=== PATIENT | female | born 1950 | race Caucasian/White ===

== ENCOUNTER 2017-04-22 07:51 | Day surgery (SDC) | payer BC, MEDICARE ==
[~2017-04-22 07:51] MED LIST: RINGER'S SOLUTION,LACTATED 1,000 ML IV PRN
--- NOTE | 2017-04-22 09:08 | OR ---
Operative Report - Dictated Report Narrative: Date: 04/22/2017 Preop dx: screening colonoscopy\ Postop dx: Diverticulosis of sigmoid colon, moderate Procedure: Total colonoscopy Staff surgeon: Josesito Calle MD Anesthesia: MAC per [employer]LE[employer] MANAGER EBL: none Specimens: none Comps: none apparent Description: After informed consent and appropriate sedation the patient was placed in the left lateral decubitus position. A flexible fiberoptic video colonoscopy was introduced and advanced under direct vision without difficulty to the cecum. The usual landmarks were identified. preparation was excellent and excellent views were obtained. The findings were of a normal cecum, ascending colon, hepatic flexure, transverse colon, splenic flexure, descending colon, sigmoid colon except for about 6 diverticuli, and rectum. Retroflex of the rectum was normal. Lichen sclerosis was noted on the perianal skin. The mucosal color, vasculature, and texture were normal throughout. No suspicious masses were seen. The patient tolerated the procedure well without apparent complications and was discharged from the endoscopy suite in stable condition.
[2017-04-22 10:39] VITALS: BP 130/70
== END 2017-04-22 07:52 | disposition home or self-care (01) ==
LOC: AMB 07:51
PROVIDERS: ATTEND Specialist
PROC: 0DJD8ZZ Inspection of Lower Intestinal Tract, Via Natural or Artificial Opening Endoscopic (ICD-10-PCS; principal; 2017-04-22 08:55)
DX: Z12.11 Encounter for screening for malignant neoplasm of colon (principal); K57.30 Diverticulosis of large intestine without perforation or abscess without bleeding; I10 Essential (primary) hypertension; Z87.891 Personal history of nicotine dependence

== ENCOUNTER 2017-05-19 19:26 | Observation (INO) | payer BC, MEDICARE ==
[2017-05-19] MEDS ORDERED: DILTIAZEM HCL 5 MG/ML VIAL IV ONE ×2 (19:40→20:09)
--- NOTE | 2017-05-19 19:56 | ERNOTE ---
Chest Pain/Cardiac HPI Date of Service: 05/19/17 Chief Complaint: Palpitations Time Seen by Provider: 05/19/17 19:46 Source: patient Exam Limitations: no limitations Immunizations: IMMUNIZATION HX Immunizations Up to Date Yes History of Influenza Vaccine Yes Hx Pneumococcal Vaccination No Allergies/Adverse Reactions: Allergies Sulfa (Sulfonamide Antibiotics) Allergy (Severe, Verified 04/22/17 08:14) Anaphylaxis Home Medications: HOME MEDICATIONS Acetaminophen [Tylenol] 1,000 mg PO Q6H PRN 09/18/15 [Last Taken Unknown] Clobetasol Propionate [Temovate 0.05% Ointment] 1 applic TP 3XW 09/18/15 [Last Taken Unknown] Cyanocobalamin (Vitamin B-12) [Vitamin B-12] 2,000 mcg PO DAILY 09/18/15 [Last Taken Unknown] Calcium Carbonate/Vitamin D3 [Caltrate 600 + D Soft Chew Tab] 1 each PO DAILY [Last Taken Unknown] Turmeric/Turmeric Root Extract [Turmeric] 500 mg PO DAILY 04/15/17 [Last Taken Unknown] Narrative: Pt. comes in with c/o palpitations that started at 1730 this evening accompanied by mild SOB. Pt. denies any dizziness, NVD, history of heart disease, fever, recent illness, or injury. Pt. denies any alleviating or aggravating factors. Pt. denies any prehospital treatment. Pt. does state that she has had palpitations in the past without it lasting more than 1-2 minutes. Review of Systems - Review of Systems Constitutional: Present: no symptoms reported. Absent: recent illness, fever, chills, weakness, fatigue, malaise, weight loss EYE: Present: no symptoms reported ENT: Present: no symptoms reported Respiratory: Present: shortness of breath. Absent: cough, wheezing Cardiology: Present: palpitations. Absent: chest pain, syncope, edema, claudication Gastrointestinal/Abdominal: Present: no symptoms reported. Absent: nausea, vomiting, diarrhea Genitourinary: Present: no symptoms reported Musculoskeletal: Present: no symptoms reported. Absent: back pain, joint pain Skin: Present: no symptoms reported Neurological: Present: no symptoms reported. Absent: headache, dizziness/light- headedness, numbness, tingling All Other Systems: All systems neg except as marked - Patient's Past Medical History Patient History - Medical: Arthritis, Other - thyroid nodule Patient History - Cardiac/Respiratory: No pertinent hx Patient History - Cancer: No Hx of Cancer Patient History - Surgical Procedures: Appendectomy, Other Patient History - Other: None - Family History Mother Family History - Medical: , Other Family History - Cardiac/Respiratory: Atrial Fibrillation, Coronary Heart Disease, Hypertension Family History - Cancer: No pertinent family hx Father Family History - Medical: History Unknown Family History - Cardiac/Respiratory: History Unknown Family History - Cancer: History Unknown - Social History Living Situations: home Abuse History: No History of abuse Psych History: No pertinent hx Smoking Status: Former smoker Have you smoked in the past 12 months: No Do you dip or chew tobacco: No Alcohol Use: none Drug Use: none - Immunizations Immunizations Up to Date: Yes Hx Pneumococcal Vaccination: No History of Influenza Vaccine: Yes Physical Exam - Physical Exam General Appearance: Present: wd/wn, alert, no apparent distress Head Exam: Present: normal inspection, no evidence of injury Eye Exam: Normal inspection: bilateral Neck: Present: normal inspection, nontender. Absent: lymphadenopathy (R), lymphadenopathy (L), thyromegaly Respiratory: Present: no respiratory distress, normal breath sounds, no accessory muscle use, chest nontender, lungs clear Cardiovascular/Chest: Present: regular rate, rhythm, no murmur, normal peripheral pulses Gastrointestinal/Abdominal: Present: normal bowel sounds, nontender, nondistended, soft, no organomegaly Back Exam: Present: normal inspection Extremity Exam: Present: normal inspection Neurological Exam: Present: alert, oriented, normal mood/affect, no motor/ sensory deficits Skin Exam: Present: normal color, warm/dry. Absent: pallor, skin rash ED Progress - Date and Time Seen: Date and Time: 05/19/1719[address] Stoll and he recommends admitting pt if rate becomes controlled as pt. likely needs echo before discharge home and valvular evaluation before choosing anticoagulation. 05/19/17 20:59 Discussed with Patricia and we will admit pt to her for observation for new onset A -fib. - Results and Orders Patient's Lab Results:: I have reviewed the patient's lab results. - Vital Signs Patient's Vital Signs:: I have reviewed the patient's vital signs. Vital Signs: Vital Signs 09/11/17 09/11/17 19:30 19:41 Temperature 36.7 C Pulse Rate 132 H 132 H Respiratory 16 Rate Blood Pressure 151/100 O2 Sat by Pulse 97 Oximetry - EKG EKG: atrial fibrillation, other - RVR EKG read: Reviewed by me EKG Comments: interp by Dr Stoll Repeat EKG NSR at 2044 - X-Ray X-Ray #1 X-Ray: chest Interpretation: Interp. by me X-ray Comments: no consolidation, no infiltrate, no cardiomegaly - Progress/Reassessment Chief Complaint: Palpitations Progress:: Improved Departure - Departure Clinical Impression: A-fib Qualifiers: Atrial fibrillation type: paroxysmal Qualified Code(s): I48.0 - Paroxysmal atrial fibrillation Disposition: [facility] Condition: Fair
[2017-05-19 20:05] LABS: Hematocrit 42.3 % (37.0-47.0); Hemoglobin 13.8 gm/dL (12.5-16.0); Mean Cell Volume 92.8 fl (78-100); Mean Corpuscular Hemoglobin 30.3 pg (27-31); Mean Corpuscular Hgb Conc 32.6 g/dl (32-36); Mean Platelet Volume 9.4 fl (6.0-9.5); Neutrophil # 4.1 K/mm3 (1.3-6.0); Neutrophil % 60.5 % (42-75.0); Platelet Count 241 K/mm3 (150-450); Red Blood Count 4.56 M/mm3 (4.2-5.4); Red Cell Distribution Width 12.9 % (11.5-14.0); White Blood Count 6.8 K/mm3 (4.0-10.5)
[2017-05-19 20:20] LABS: Urine Appearance Clear; Urine Bacteria TRACE; Urine Bilirubin Negative (NEGATIVE); Urine Blood 5 /ul (NEGATIVE); Urine Ketone Negative (NEGATIVE); Urine Nitrite Negative (NEGATIVE); Urine Protein Negative (NEGATIVE); Urine RBC None Seen /hpf (0-5); Urine Specific Gravity <=1.005 SP.GR. (1.005-1.010); Urine Urobilinogen Normal (NORMAL); Urine WBC None Seen /hpf (0-5)
[2017-05-19 20:21] LABS: Urine Color Pale Yellow
[2017-05-19 20:29] LABS: Albumin * 4.3 gm/dl (3.4-5.0); Anion Gap 17.7 mmol/L (6.8-13.8); Bilirubin, Total 0.3 mg/dL (0.0-1.1); Ca. Corrected For Albumin 8.8 mg/dL (8.4-10.2); Calcium * 9.4 mg/dL (7.9-10.9); Carbon Dioxide 24.8 mmol/L (24-32.6); Magnesium 2.1 mg/dL (1.2-2.8); Phosphorus 3.9 mg/dL (2.2-4.2); Potassium 3.5 mmol/L (3.4-4.6); T4 Free * 0.93 ng/dL (0.76-1.46); TSH * 0.914 uIU/mL (0.358-3.74); Total Protein 7.9 gm/dL (6.2-8.2)
[2017-05-19 21:03] LABS: Troponin I Less than 0.017 ng/ml (0.00-0.10)
[2017-05-19 21:07] LABS: BNP * 287 pg/mL (5-325)
--- NOTE | 2017-05-19 21:44 | HP ---
Chief Complaint - Chief Complaint Date of Service: 05/19/17 - n Time of Service: 21:32 Chief Complaint: "Palpitations". Source of HPI- Pt; reliable, ERP report. History of Present Illness: Mrs. Barrow is a 67-yr-old [place] pt of Dr. Billy Bejarano with a PMH of: HTN, Osteopenia & Spinal Stenosis. Pt reports that she has been feeling very tired lately. Today, she decided to mow her yard, but she had to take several breaks due to fatigue. She went to [employer] with her friend around 4.30 pm. When she got back home, she decided to finish mowing and while doing so, she begun having a " strange feeling in her heart." She checked her pulse and it felt very irregular. She denies the associated symptoms of n/v, diaphoresis & lightheadedness & chest pain, but she had admits SOB. At the ED, the EKG showed A-fib with RVR in 130S. She was given IVP diltiazem which controlled HR to < 100. She will need to be admitted under observation status for telemetry monitoring /treatment of life threatening arrhythmias that can likely occur. - Patient's Past Medical History Patient History - Medical: Arthritis, Other - thyroid nodule, Osteopenia, Spinal Stenosis. Patient History - Cardiac/Respiratory: Hypertension Patient History - Cancer: No Hx of Cancer Patient History - Surgical Procedures: Appendectomy, Other Patient History - Other: None - Family History Mother Family History - Medical: , Other Family History - Cardiac/Respiratory: Atrial Fibrillation, Coronary Heart Disease, Hypertension Family History - Cancer: No pertinent family hx Father Family History - Medical: History Unknown Family History - Cardiac/Respiratory: History Unknown Family History - Cancer: History Unknown - Social History Living Situations: home Abuse History: No History of abuse Psych History: No pertinent hx Smoking Status: Former smoker Have you smoked in the past 12 months: No Do you dip or chew tobacco: No Alcohol Use: none Drug Use: none - Immunizations Immunizations Up to Date: Yes Hx Pneumococcal Vaccination: No History of Influenza Vaccine: Yes Review Of Systems (GEN) - Review of Systems Generalized/Overall Review: Present: Weakness. Absent: Chills, Fever EENTM: Absent: Eye Pain, Blurred Vision, Nose Congestion Respiratory: Absent: Cough, Shortness of Breath, Orthopnea Cardiac: Present: Palpitations. Absent: Chest Pain, Edema, Syncope Abdominal: Absent: Nausea, Vomiting, Hematemesis, Abdominal Pain, Constipation, Diarrhea Genitourinary: Absent: Burning, Itching, Urgency Musculoskeletal: Absent: Joint Pain, Back Pain, Joint Swelling Neurological: Absent: Headache, Anxiety, Depressed, Emotional Problems, Numbness , Seizure Skin: Absent: Dryness, Lesions Endocrine: Present: Flushing. Absent: Increased Hunger, Increased Thirst Misc: All systems neg except as marked Allergies/Adverse Reactions: Allergies Allergy/AdvReac Type Severity Reaction Status Date / Time Sulfa (Sulfonamide Allergy Severe Anaphylaxis Verified 04/22/17 08:14 Antibiotics) Home Medications: HOME MEDICATIONS Acetaminophen [Tylenol] 1,000 mg PO Q6H PRN 09/18/15 [Last Taken Unknown] Clobetasol Propionate [Temovate 0.05% Ointment] 1 applic TP 3XW 09/18/15 [Last Taken Unknown] Cyanocobalamin (Vitamin B-12) [Vitamin B-12] 2,000 mcg PO DAILY 09/18/15 [Last Taken Unknown] Calcium Carbonate/Vitamin D3 [Caltrate 600 + D Soft Chew Tab] 1 each PO DAILY [Last Taken Unknown] Exam - Exam Vital Signs: Vital Signs - Last Taken Temp 36.7 C 05/19/17 19:30 Pulse 85 05/19/17 21:25 Resp 16 05/19/17 21:25 BP 161/78 05/19/17 21:25 Pulse Ox 95 05/19/17 21:25 Constitutional: Present: Alert, Oriented x3, Cooperative, No distress ENT Exam: Present: normal ENT inspection, hearing grossly normal Eye Exam: bilateral eye: normal inspection, PERRL Neck: Present: non-tender, full range of motion, supple Back Exam: Present: normal inspection, no CVA tenderness Breasts: Present: Exam deferred Respiratory: Present: normal breath sounds, No rales, No wheezing Cardiovascular/Chest: Present: no chest tenderness, no edema, no murmur, irregularly irregular Abdomen: Present: Normal bowel sounds, soft, nontender /Rectal: Present: Exam deferred Extremity: Present: normal range of motion, non-tender, normal inspection, no pedal edema Skin Exam: Present: warm/dry, no cyanosis Lymphatic: Present: no adenopathy Neurologic: Present: no motor/sensory deficits, alert, normal mood/affect, oriented x 3. Absent: dizzy/light-headedness Appearance: Present: appropriate appearance, appropriate insight Eye contact: Present: cooperative, good eye contact, normal speech Thoughts: Present: normal thought pattern, no apparent hallucination Diagnostic Studies: Laboratory Results WBC 6.8 K/mm3 (4.0-10.5) 05/19/17 19:55 RBC 4.56 M/mm3 (4.2-5.4) 05/19/17 19:55 Hgb 13.8 gm/dL (12.5-16.0) 05/19/17 19:55 Hct 42.3 % (37.0-47.0) 05/19/17 19:55 MCV 92.8 fl (78-100) 05/19/17 19:55 MCH 30.3 pg (27-31) 05/19/17 19:55 MCHC 32.6 g/dl (32-36) 05/19/17 19:55 RDW 12.9 % (11.5-14.0) 05/19/17 19:55 Plt Count 241 K/mm3 (150-450) 05/19/17 19:55 MPV 9.4 fl (6.0-9.5) 05/19/17 19:55 Immature Gran % (Auto) 0.30 % (0.001-0.429) 05/19/17 19:55 Immature Gran # (Auto) 0.02 K/mm3 (0.000-0.0310) 05/19/17 19:55 Neutrophils % 60.5 % (42-75.0) 05/19/17 19:55 Lymphocytes % 28.0 % (20-51) 05/19/17 19:55 Monocytes % 8.2 % (0.0-9) 05/19/17 19:55 Eosinophils % 2.3 % (0.0-3.0) 05/19/17 19:55 Basophils % 0.7 % (0.0-1.0) 05/19/17 19:55 Nucleated RBC % 0.0 k/mm3 (0-1) 05/19/17 19:55 Neutrophils # 4.1 K/mm3 (1.3-6.0) 05/19/17 19:55 Lymphocytes # 1.9 k/mm3 (1.5-3.5) 05/19/17 19:55 Monocytes # 0.6 k/mm3 (0.0-1.0) 05/19/17 19:55 Eosinophils # 0.2 k/mm3 (0.0-0.7) 05/19/17 19:55 Absolute Basophils 0.1 k/mm3 (0.0-0.1) 05/19/17 19:55 Sodium 145 mmol/L (132-142) H 05/19/17 19:55 Plasma Sodium 145 mmol/L (130-142) H 05/19/17 19:55 Potassium 3.5 mmol/L (3.4-4.6) 05/19/17 19:55 Chloride 106 mmol/L (97-106) 05/19/17 19:55 Carbon Dioxide 24.8 mmol/L (24-32.6) 05/19/17 19:55 Anion Gap 17.7 mmol/L (6.8-13.8) H 05/19/17 19:55 BUN 18 mg/dL (3-23) 05/19/17 19:55 Creatinine 1.00 mg/dL (0.4-1.4) 05/19/17 19:55 Est GFR (Non-Af Amer) 58 mL/min (60-130) L D 05/19/17 19:55 BUN/Creatinine Ratio 18.0 (9.0-21.6) 05/19/17 19:55 Random Glucose 89 mg/dL (70-110) 05/19/17 19:55 Calcium 9.4 mg/dL (7.9-10.9) 05/19/17 19:55 Calcium Adj for Albumin 8.8 mg/dL (8.4-10.2) 05/19/17 19:55 Phosphorus 3.9 mg/dL (2.2-4.2) 05/19/17 19:55 Magnesium 2.1 mg/dL (1.2-2.8) 05/19/17 19:55 Total Bilirubin 0.3 mg/dL (0.0-1.1) 05/19/17 19:55 AST 16 U/L (0-48) 05/19/17 19:55 ALT 24 U/L (19-67) 05/19/17 19:55 Alkaline Phosphatase 105 U/L (50-170) 05/19/17 19:55 Troponin I Less than 0.017 ng/ml (0.00-0.10) 05/19/17 19: B-Natriuretic Peptide 287 pg/mL (5-325) 05/19/17 19:55 Total Protein 7.9 gm/dL (6.2-8.2) 05/19/17 19: Albumin 4.3 gm/dl (3.4-5.0) 05/19/17 19: TSH 0.914 uIU/mL (0.358-3.74) 05/19/17 19: Free T4 0.93 ng/dL (0.76-1.46) 05/19/17 19: Urine Color Pale yellow 05/19/17 20:00 Urine Appearance Clear 05/19/17 20:00 Urine pH 6.0 pH (5.0-7.0) 05/19/17 20:00 Ur Specific [place] <=1.005 SP.GR. (1.005-1.010) 05/19/17 20:00 Urine Protein Negative mg/dL (NEGATIVE) 05/19/17 20:00 Urine Glucose (UA) Negative mg/dL (NEGATIVE) 05/19/17 20:00 Urine Ketones Negative mg/dL (NEGATIVE) 05/19/17 20:00 Urine Blood 5 /ul (NEGATIVE) H 05/19/17 20:00 Urine Nitrate Negative (NEGATIVE) 05/19/17 20:00 Urine Bilirubin Negative mg/dl (NEGATIVE) 05/19/17 20:00 Urine Urobilinogen Normal EU/dl (NORMAL) 05/19/17 20:00 Ur Leukocyte Esterase Negative /ul (NEGATIVE) 05/19/17 20:00 Urine RBC None seen /hpf (0-5) 05/19/17 20:00 Urine WBC None seen /hpf (0-5) 05/19/17 20:00 Ur Epithelial Cells None seen /hpf (0-5) 05/19/17 20:00 Urine Bacteria Trace (NONE) 05/19/17 20:00 Urine Culture Comments No culture indicated 05/19/17 20:00 Assessment/Plan - Assessment/Plan (1) New onset a-fib Assessment: Pt is a 67 yr -old who was determined to have a-fib with RVR in 130s on presentation to the ED. This is determined to be a new onset and she reported the typical symptoms involving chest discomfort, dyspnea, reduced exercise/ physical activity intolerance. Physical exam finding include irregular Heart rate, but no s/s of heart failure: orthopnea or peripheral edema, rales on LS. She denies history of loud snoring during sleep and apneic events. The CXR showed normal cardiac size. She will be admitted and placed on cardiac telemetry monitoring and utilize IV BB or CCB for A-fib with RVR. She may need stress test to check for exercise induced A-fib. TTE is recommended to check for any valvular heart disease or thrombus formation in the left atrium and both test can be done outpatient and if no acute events overnight. She may need anticoagulation. According to CHADS2 score, she has an intermediate risk of thromboembolic event of 2.8% if no Coumadin/ anticoagulation. Problem: Acute (2) Atrial fibrillation with RVR Assessment: Plan as above. Problem: Acute
[2017-05-19] MEDS ORDERED: ACETAMINOPHEN 500 MG TABLET PO PRN (23:05)
[2017-05-19] MEDS ORDERED: CLOBETASOL PROPIONATE 15 APPL TUBE TP SCH (23:15)
[2017-05-20] MEDS ORDERED: CALCIUM CARBONATE/VITAMIN D3 1 TAB TABLET PO SCH (09:00)
[2017-05-20] MEDS ORDERED: CYANOCOBALAMIN 1,000 MCG TABLET PO SCH (09:00)
[2017-05-20 11:35] VITALS: BP 136/82
--- NOTE | 2017-05-20 12:56 | DS ---
(1) Atrial fibrillation with RVR Problem: Acute (2) New onset a-fib Problem: Acute Description of Stay: Yari is a 67 yo female with new onset atrial fibrillation with rapid ventricular response. She presented to the [facility] ER and was given IV diltiazem and converted to normal sinus rhythm. She was admitted to observation for monitoring on telemetry and work up for new onset atrial fibrillation. She had an echocardiogram that is pending at this time, normal chest xray, and normal thyroid studies. During hospital course she had no further episodes of atrial fibrillation and was asymptomatic. She clinically felt her normal and was discharged to home. Will set up an outpatient holter to look for paroxysmal atrial fibrillation. She will take a daily baby aspirin for anticoagulation as she is in normal sinus rhythm and she is at low risk for stroke even with atrial fibrillation as she does not have significant risk factors. Procedures Performed: none Discharge Disposition: Home self care Disposition: Home self-care Condition: Good Discharge Activity: Activity as tolerated Discharge Diet: General/regular food Referrals: Billy Bejarano DO [Primary Care Provider] - One Week Problem Oriented Discharge Instructions to Patient/Family: Atrial Fibrillation , [id number] Additional Patient Instructions (free text): TCM at discharge , if applicable, please. Thank you. Yuli at [phone]. Holter Monitor on next Friday05/28/17 at 10:00am at Registration desk. Follow up with Dr. Bejarano 05/28 at 2:00. Prescriptions (Any new or edited meds): Aspirin [Aspirin EC] 81 mg PO DAILY #30 tablet. Complete Home Medications List: Complete Home Medication List: Acetaminophen [Tylenol] 1,000 mg PO Q6H PRN 09/18/15 Clobetasol Propionate [Temovate 0.05% Ointment] 1 applic TP 3XW 09/18/15 Cyanocobalamin (Vitamin B-12) [Vitamin B-12] 2,000 mcg PO DAILY 09/18/15 Calcium Carbonate/Vitamin D3 [Caltrate 600 + D Soft Chew Tab] 1 each PO DAILY Aspirin [Aspirin EC] 81 mg PO DAILY #30 tablet. 05/20/17 Amb Orders for Discharge: Holter Monitor Time Frame: 05/28/17, Facility: [facility], Location: Radiology
--- NOTE | 2017-05-23 08:56 | ECHO ---
This report is available in the EMR
== END 2017-05-20 13:50 | disposition home or self-care (01) ==
LOC: ER 19:26 → MS 21:18
PROVIDERS: ADMIT Nurse Practitioner; ATTEND Family Medicine
DX: I48.0 Paroxysmal atrial fibrillation (principal); I10 Essential (primary) hypertension; M85.80 Other specified disorders of bone density and structure, unspecified site; M48.00 Spinal stenosis, site unspecified; Z87.891 Personal history of nicotine dependence
CPT/HCPCS: 36415; 71020; 80053; 81001; 83735; 83880; 84100; 84439; 84443; 84484; 85025; 93005; 93306; 96374; 99285; G0378

== ENCOUNTER 2018-06-24 21:14 | Observation (INO) | payer BC, MEDICARE ==
[2018-06-24] MEDS ORDERED: ASPIRIN 81 MG TAB.CHEW PO ONE (21:46)
[2018-06-24] MEDS ORDERED: DILTIAZEM HCL 5 MG/ML VIAL IV ONE ×2 (21:50→21:51)
[2018-06-24] MEDS ORDERED: DILTIAZEM HCL 125 MG in DEXTROSE 5 % IN WATER 100 ML IV PRN ×2 (21:51)
[2018-06-24] MEDS ORDERED: ASPIRIN 81 MG TAB.CHEW ONE (21:53)
--- NOTE | 2018-06-24 21:53 | ERNOTE ---
Chest Pain/Cardiac HPI Chief Complaint: Tachycardia Time Seen by Provider: 06/24/18 21:45 Source: patient Exam Limitations: no limitations Immunizations: IMMUNIZATION HX Immunizations Up to Date Yes History of Influenza Vaccine No Hx Pneumococcal Vaccination No Allergies/Adverse Reactions: Allergies Sulfa (Sulfonamide Antibiotics) Allergy (Severe, Verified 06/24/18 21:25) Anaphylaxis Home Medications: HOME MEDICATIONS Acetaminophen [Tylenol] 1,000 mg PO Q6H PRN 09/18/15 [Last Taken Unknown] Cyanocobalamin (Vitamin B-12) [Vitamin B-12] 2,000 mcg PO DAILY 09/18/15 [Last Taken Unknown] Calcium Carbonate/Vitamin D3 [Caltrate 600 + D Soft Chew Tab] 1 ea PO DAILY 04/15/17 [Last Taken Unknown] Aspirin [Aspirin EC] 81 mg PO DAILY #30 tablet. 05/20/17 [Last Taken Unknown] multivitamin tablet 1 tab PO DAILY 03/12/18 [Last Taken Unknown] clobetasol 0.05 % topical ointment 1 applic TP 3XW #45 g NS 03/18/18 [Last Taken Unknown] Narrative: Pt had palpitations since around 19:00. She took 2 81 mg ASA and tried to relax without any improvement. Timing: constant Severity/Quality: moderate Location: left chest Chest Pain Radiation: no radiation Activities at Onset: none Modifying Factors - Worsens: Present: nothing Aspirin Treatment Today: 81 mg x 2 Associated Symptoms: Absent: headache, dizziness, syncope, diaphoresis Prior Chest Pain/Cardiac Workup: Reports: echocardiogram - and holter monitor with previous episode. Review of Systems - Review of Systems Constitutional: Present: recent illness ENT: Present: nose congestion - and took sudafed today. Respiratory: Present: cough. Absent: shortness of breath Cardiology: Present: See HPI, palpitations. Absent: chest pain Gastrointestinal/Abdominal: Absent: nausea, vomiting Musculoskeletal: Absent: back pain, muscle pain Skin: Absent: rash Endocrine: Absent: excessive sweating Medical History (Last Reviewed 06/24/18 @ 23:04 by Prakash Spears DO) Spinal stenosis (Chronic) Onset Date: Unknown Osteopenia (Chronic) Onset Date: 01/04/14 Hypertension (Chronic) Onset Date: ~2008 Bulging lumbar disc (Chronic) Onset Date: Unknown Atrial fibrillation Onset Date: ~05/2017 Lichen sclerosus Onset Date: 06/23/12 Goiter Onset Date: Unknown Surgical History: Surgical History (Last Reviewed 06/24/18 @ 23:04 by Prakash Spears DO) H/O colonoscopy Onset Date: 04/22/17 H/O excision of ganglion cyst Onset Date: ~1973 H/O ovarian cystectomy Onset Date: Unknown History of appendectomy Onset Date: Unknown Hx of hernia repair Onset Date: Unknown Hx of toe surgery Onset Date: 09/21/15 Family History: Family History (Last Reviewed 06/24/18 @ 23:04 by Prakash Spears DO) Brother Heart disease A-fib Father Myocardial infarction Aneurysm Sister Hypertension Parkinsons disease Mother Heart disease A-fib Hypertension Liver cancer Bone cancer Arthritis Social History: Preferred Language Yi Smoking Status Never smoker Have you smoked in the past 12 No months Do you dip or chew tobacco No Abuse History No History of abuse Psych History No pertinent hx Alcohol Use none Drug Use none Physical Exam - Physical Exam General Appearance: Present: wd/wn, alert, no apparent distress Head Exam: Present: normal inspection, no evidence of injury Neck: Present: normal inspection, nontender, supple, full range of motion Respiratory: Present: no respiratory distress, normal breath sounds, lungs clear Cardiovascular/Chest: Present: tachycardia, irregularly irregular Gastrointestinal/Abdominal: Present: normal bowel sounds, nontender, nondistended, soft Back Exam: Present: normal inspection, normal range of motion Extremity Exam: Present: normal inspection, normal range of motion, no edema Neurological Exam: Present: alert, oriented, normal mood/affect, no motor/sensory deficits, 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 Results and Orders: Laboratory Tests 06/24/18 06/24/18 06/24/18 21:55 21:55 21:55 WBC 5.5 Hgb 13.8 Hct 42.6 Plt Count 256 PT 10.0 INR (Anticoag Therapy) 1.00 PTT (Sarahy) 26.4 Sodium 140 Potassium 3.5 Chloride 103 BUN 14 Creatinine 0.82 Random Glucose 86 Calcium 9.6 Total Bilirubin 0.5 AST 26 ALT 29 Alkaline Phosphatase 109 Troponin I 0.019 Total Protein 7.9 Albumin 4.3 - Vital Signs Patient's Vital Signs:: I have reviewed the patient's vital signs. Vital Signs: Vital Signs 06/24/18 21:20 Pulse Rate 108 H Respiratory Rate 16 Blood Pressure 152/111 H O2 Sat by Pulse Oximetry 100 - EKG EKG: atrial fibrillation - with RVR , nonspecific ST T wave changes EKG read: Interp. by me - X-Ray X-Ray #1 X-Ray: chest Interpretation: Interp. by me X-ray Comments: no infiltrate or effusion. Cardiac size normal. - Progress/Reassessment Chief Complaint: Tachycardia Progress:: Improved Progress Note-Subjective: 06/24/18 22:[address] Marcos and she agrees with admission to [facility]. Departure Clinical Impression: Atrial fibrillation with RVR, New onset a-fib - Departure Disposition: Still a patient Condition: Good
[2018-06-24 22:02] LABS: Hematocrit 42.6 % (37.0-47.0); Hemoglobin 13.8 gm/dL (12.5-16.0); Mean Corpuscular Hemoglobin 30.5 pg (27-31); Mean Corpuscular Hgb Conc 32.4 g/dl (32-36); Neutrophil % 54.1 % (42-75.0); Platelet Count 256 K/mm3 (150-450); Red Blood Count 4.53 M/mm3 (4.2-5.4); Red Cell Distribution Width 12.9 % (11.5-14.0); White Blood Count 5.5 K/mm3 (4.0-10.5)
[2018-06-24 22:20] LABS: Albumin * 4.3 gm/dl (3.4-5.0); Anion Gap 10.3 mmol/L (6.8-13.8); BUN/Creatinine Ratio 17.1 (9.0-21.6); Bilirubin, Total 0.5 mg/dL (0.0-1.1); Calcium * 9.6 mg/dL (7.9-10.9); Carbon Dioxide 30.2 mmol/L (24-32.6); Partial Thrombolplastin Time 26.4 Seconds (24-32); Potassium 3.5 mmol/L (3.4-4.6); Total Protein 7.9 gm/dL (6.2-8.2); Troponin I 0.019 ng/mL (0.00-0.10)
[2018-06-25] MEDS: DILTIAZEM HCL 30 MG TABLET PO SCH ×3 (00:48→13:20)
--- NOTE | 2018-06-25 13:36 | HP ---
Chief Complaint - Chief Complaint Date of Service: 06/25/18 Time of Service: 08:00 Chief Complaint: Palpitations, shortness of breath History of Present Illness: Yari is a 68 yo female who presented to the [facility] ER early this morning with shortness of breath and palpations. She has had one prior episode last year of atrial fibrillation with rapid ventricular response that resolved with medication therapy and to our knowledge has not returned since. Yesterday she reports working outside more than usual, but had otherwise a routine day. In the ER she was found to be in atrial fibrillation with rapid ventricular response. She was given diltiazem in the ER and rate improved. She currently feels better and denies shortness of breath or palpitations at this time. She reports ever since given medication and coming over to the floor she has felt better. Medical History (Last Reviewed 06/25/18 @ 00:29 by Lily Nuñez RN) Spinal stenosis (Chronic) Onset Date: Unknown Osteopenia (Chronic) Onset Date: 01/04/14 Hypertension (Chronic) Onset Date: ~2008 Bulging lumbar disc (Chronic) Onset Date: Unknown Atrial fibrillation Onset Date: ~05/2017 Lichen sclerosus Onset Date: 06/23/12 Goiter Onset Date: Unknown Surgical History: Surgical History (Last Reviewed 06/25/18 @ 00:29 by Lily Nuñez RN) H/O colonoscopy Onset Date: 04/22/17 [place] - sigmoid diverticulosis - recheck 10 years H/O excision of ganglion cyst Onset Date: ~1973 left wrist H/O ovarian cystectomy Onset Date: Unknown right History of appendectomy Onset Date: Unknown Hx of hernia repair Onset Date: Unknown left inguinal Hx of toe surgery Onset Date: 09/21/15 Family History: Family History (Last Reviewed 06/25/18 @ 00:29 by Lily Nuñez RN) Brother Heart disease 3 brothers, 1 with atrial fibrillation and heart disease A-fib Father Myocardial infarction Aneurysm Sister Hypertension Parkinsons disease Mother Heart disease A-fib Hypertension Liver cancer Bone cancer Arthritis Social History: Patient Lives/Resources Home Utilized 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 Smoking Status Former smoker Have you smoked in the past 12 No months Do you dip or chew tobacco No Abuse History No History of abuse Psych History No pertinent hx Alcohol Use none Drug Use none (Last Updated 05/24/18 @ 10:40 by Billy Bejarano DO) No Social History Section defined Review Of Systems (GEN) - Review of Systems Generalized/Overall Review: Absent: Weakness, Chills EENTM: Present: No Symptoms Reported Respiratory: Present: Shortness of Breath. Absent: Cough Cardiac: Present: Palpitations. Absent: Chest Pain, Edema Abdominal: Absent: Nausea, Vomiting Genitourinary: Present: No Symptoms Reported Musculoskeletal: Present: No Symptoms Reported Neurological: Present: No Symptoms Reported Skin: Present: No Symptoms Reported Endocrine: Present: No Symptoms Reported Immunizations: IMMUNIZATION HX Immunizations Up to Date Yes History of Influenza Vaccine No Hx Pneumococcal Vaccination No Allergies/Adverse Reactions: Allergies Allergy/AdvReac Type Severity Reaction Status Date / Time Sulfa (Sulfonamide Allergy Severe Anaphylaxis Verified 07/01/18 11:03 Antibiotics) Home Medications: HOME MEDICATIONS Acetaminophen [Tylenol] 1,000 mg PO Q6H PRN 09/18/15 [Last Taken Unknown] Cyanocobalamin (Vitamin B-12) [Vitamin B-12] 2,000 mcg PO DAILY 09/18/15 [Last Taken 06/23/18] Calcium Carbonate/Vitamin D3 [Caltrate 600 + D Soft Chew Tab] 1 ea PO DAILY 04/15/17 [Last Taken 06/24/18 10:00] Aspirin [Aspirin EC] 81 mg PO DAILY #30 tablet.dr 05/20/17 [Last Taken 06/24/18 10:00] multivitamin tablet 1 tab PO DAILY 03/12/18 [Last Taken 06/23/18] clobetasol 0.05 % topical ointment 1 applic TP 3XW #45 g NS 03/18/18 [Last Taken 06/23/18] Diltiazem HCl [Diltiazem 24Hr ER] 120 mg PO DAILY #30 cap.er.24h 06/25/18 [Last Taken Unknown] Exam - Exam Vital Signs: Vital Signs - Last Taken Temp 36.6 C 06/25/18 10:28 Pulse 75 06/25/18 13:20 Resp 18 06/25/18 10:28 BP 121/68 06/25/18 13:20 Pulse Ox 97 06/25/18 10:28 Constitutional: Present: Alert, Oriented x3, Cooperative ENT Exam: Present: normal ENT inspection, hearing grossly normal Eye Exam: bilateral eye: normal inspection Respiratory: Present: chest non-tender, lungs clear, normal breath sounds Cardiovascular/Chest: Present: regular rate, rhythm, no murmur Abdomen: Present: Normal bowel sounds, soft, nontender, nondistended Skin Exam: Present: normal color, warm/dry, no cyanosis Appearance: Present: appropriate appearance, appropriate insight Eye contact: Present: cooperative, good eye contact, normal speech Thoughts: Present: normal thought pattern, no apparent hallucination Diagnostic Studies: Abnormal Lab Results 06/24/18 Range/Units 21:55 Monocytes % 9.2 H (0.0-9) % Eosinophils % 3.5 H (0.0-3.0) % Laboratory Results WBC 5.5 K/mm3 (4.0-10.5) 06/24/18 21:55 RBC 4.53 M/mm3 (4.2-5.4) 06/24/18 21:55 Hgb 13.8 gm/dL (12.5-16.0) 06/24/18 21:55 Hct 42.6 % (37.0-47.0) 06/24/18 21:55 MCV 94.0 fl (78-100) 06/24/18 21:55 MCH 30.5 pg (27-31) 06/24/18 21:55 MCHC 32.4 g/dl (32-36) 06/24/18 21:55 RDW 12.9 % (11.5-14.0) 06/24/18 21:55 Plt Count 256 K/mm3 (150-450) 06/24/18 21:55 MPV 9.0 fl (8-12.5) 06/24/18 21:55 Immature Gran % (Auto) 0.20 % (0.001-0.429) 06/24/18 21:55 Immature Gran # (Auto) 0.01 K/mm3 (0.000-0.0310) 06/24/18 21:55 Neutrophils % 54.1 % (42-75.0) 06/24/18 21:55 Lymphocytes % 32.3 % (20-51) 06/24/18 21:55 Monocytes % 9.2 % (0.0-9) H 06/24/18 21:55 Eosinophils % 3.5 % (0.0-3.0) H 06/24/18 21:55 Basophils % 0.7 % (0.0-1.0) 06/24/18 21:55 Nucleated RBC % 0.0 k/mm3 (0-1) 06/24/18 21:55 Neutrophils # 3.0 K/mm3 (1.3-6.0) 06/24/18 21:55 Lymphocytes # 1.76 k/mm3 (1.5-3.5) 06/24/18 21:55 Monocytes # 0.5 k/mm3 (0.0-1.0) 06/24/18 21:55 Eosinophils # 0.2 k/mm3 (0.0-0.7) 06/24/18 21:55 Absolute Basophils 0.0 k/mm3 (0.0-0.1) 06/24/18 21:55 PT 10.0 Seconds (9.0-11.0) 06/24/18 21:55 INR (Anticoag Therapy) 1.00 INR (0.90-1.10) 06/24/18 21:55 PTT ([place]) 26.4 Seconds (24-32) 06/24/18 21:55 Sodium 140 mmol/L (132-142) 06/24/18 21:55 Plasma Sodium 140 mmol/L (130-142) 06/24/18 21:55 Potassium 3.5 mmol/L (3.4-4.6) 06/24/18 21:55 Chloride 103 mmol/L (97-106) 06/24/18 21:55 Carbon Dioxide 30.2 mmol/L (24-32.6) 06/24/18 21:55 Anion Gap 10.3 mmol/L (6.8-13.8) 06/24/18 21:55 BUN 14 mg/dL (3-23) 06/24/18 21:55 Creatinine 0.82 mg/dL (0.4-1.4) 06/24/18 21:55 Est GFR (Non-Af Amer) 73 mL/min (60-130) 06/24/18 21:55 BUN/Creatinine Ratio 17.1 (9.0-21.6) 06/24/18 21:55 Random Glucose 86 mg/dL (70-110) 06/24/18 21:55 Calcium 9.6 mg/dL (7.9-10.9) 06/24/18 21:55 Calcium Adj for Albumin 9.0 mg/dL (8.4-10.2) 06/24/18 21:55 Total Bilirubin 0.5 mg/dL (0.0-1.1) 06/24/18 21:55 AST 26 U/L (0-48) 06/24/18 21:55 ALT 29 U/L (19-67) 06/24/18 21:55 Alkaline Phosphatase 109 U/L (50-170) 06/24/18 21:55 Troponin I 0.019 ng/mL (0.00-0.10) 06/24/18 21:55 Total Protein 7.9 gm/dL (6.2-8.2) 06/24/18 21:55 Albumin 4.3 gm/dl (3.4-5.0) 06/24/18 21:55 Assessment/Plan - Assessment/Plan (1) Atrial fibrillation with RVR Assessment: Yari is a 68 yo female with her second episode of atrial fibrillation with RVR. It has resolved into normal sinus rhythm with diltiazem. Will continue oral diltiazem for now. She continues to do well may discharge to home later today. Will plan to have her follow up with cardiology and remain on diltiazem for now. Problem: Acute
--- NOTE | 2018-06-25 15:00 | DS ---
(1) Atrial fibrillation with RVR Problem: Acute Description of Stay: Yari is a 68 yo female admitted with another episode of atrial fibrillation with rapid ventricular response. This is the second episode, the first occurring a year ago. Just like last year she converted to normal sinus rhythm with IV diltiazem and she remained in normal sinus rhythm while being observed in the [facility]. She reports no significant changes in her health prior to this episode. She was doing a lot of physical labor yesterday, but no changes otherwise. She currently feels fine and will be discharged to home. She will remain on aspirin daily. She will take oral diltiazem daily for now to help prevent reoccurrence. I will have her see Cardiology to discuss these recurrent episodes of atrial fibrillation and their recommendations for further evaluation or treatment. Procedures Performed: none Results and Findings: Lab Pending Results 06/24/18 21:55: WBC 5.5, RBC 4.53, Hgb 13.8, Hct 42.6, MCV 94.0, MCH 30.5, MCHC 32.4, RDW 12.9, Plt Count 256, MPV 9.0, Immature Gran % (Auto) 0.20, Immature Gran # (Auto) 0.01, Neutrophils % 54.1, Lymphocytes % 32.3, Monocytes % 9.2 H, Eosinophils % 3.5 H, Basophils % 0.7, Nucleated RBC % 0.0, Neutrophils # 3.0, Lymphocytes # 1.76, Monocytes # 0.5, Eosinophils # 0.2, Absolute Basophils 0.0 06/24/18 21:55: PT 10.0, INR (Anticoag Therapy) 1.00, PTT ([place]) 26.4 06/24/18 21:55: Sodium 140, Plasma Sodium 140, Potassium 3.5, Chloride 103, Carbon Dioxide 30.2, Anion Gap 10.3, BUN 14, Creatinine 0.82, Est GFR (Non-Af Amer) 73, BUN/Creatinine Ratio 17.1, Random Glucose 86, Calcium 9.6, Calcium Adj for Albumin 9.0, Total Bilirubin 0.5, AST 26, ALT 29, Alkaline Phosphatase 109, Troponin I 0.019, Total Protein 7.9, Albumin 4.3 Discharge Location: Home Disposition: Home self-care Condition: Good Discharge Activity: Activity as tolerated Discharge Diet: General/regular food Referrals: iBlly Bejarano DO [Primary Care Provider] - One Week Shari Quiroz MD [Associate] - (Next available for recurrent Atrial Fibrillation) Problem Oriented Discharge Instructions to Patient/Family: Atrial Fibrillation, [id number] Additional Patient Instructions (free text): -Please make TCM appointment unless mcc discharge. Thank you! Yuli @ [phone]. Prescriptions (Any new or edited meds): Diltiazem HCl [Diltiazem 24Hr ER] 120 mg PO DAILY #30 cap.er.24h Complete Home Medications List: Complete Home Medication List: Acetaminophen [Tylenol] 1,000 mg PO Q6H PRN 09/18/15 Cyanocobalamin (Vitamin B-12) [Vitamin B-12] 2,000 mcg PO DAILY 09/18/15 Calcium Carbonate/Vitamin D3 [Caltrate 600 + D Soft Chew Tab] 1 ea PO DAILY 04/15/17 Aspirin [Aspirin EC] 81 mg PO DAILY #30 tablet.dr 05/20/17 multivitamin tablet 1 tab PO DAILY 03/12/18 clobetasol 0.05 % topical ointment 1 applic TP 3XW #45 g NS 03/18/18 Diltiazem HCl [Diltiazem 24Hr ER] 120 mg PO DAILY #30 cap.er.24h 06/25/18
[2018-06-25 15:35] VITALS: BP 106/70
== END 2018-06-25 15:55 | disposition home or self-care (01) ==
LOC: SCU 21:14 → ER 21:14 → SCU 23:15
PROVIDERS: ADMIT Internal Medicine; ATTEND Family Medicine
CPT/HCPCS: 36415; 71010; 71045; 80053; 84484; 85025; 85610; 85730; 93005; 96365; 96366; 96375; 99284; G0378

== ENCOUNTER 2020-12-28 19:09 | Observation (INO) ==
[2020-12-28] MEDS ORDERED: DILTIAZEM HCL 5 MG/ML VIAL IV ONE (19:51)
[2020-12-28 19:57] LABS: Hematocrit 42.2 % (37.0-47.0); Hemoglobin 13.2 gm/dL (12.5-16.0); Mean Corpuscular Hemoglobin 29.7 pg (27-31); Mean Corpuscular Hgb Conc 31.3 g/dl (32-36); Mean Platelet Volume 9.8 fl (8-12.5); Neutrophil # 3.3 K/mm3 (1.3-6.0); Neutrophil % 52.9 % (42-75.0); Platelet Count 216 K/mm3 (150-450); Red Blood Count 4.44 M/mm3 (4.2-5.4); Red Cell Distribution Width 13.1 % (11.5-14.0); White Blood Count 6.3 K/mm3 (4.0-10.5)
[2020-12-28 20:01] LABS: Urine Bilirubin Negative (NEGATIVE); Urine Ketone Negative (NEGATIVE); Urine Nitrite Negative (NEGATIVE); Urine Protein Negative (NEGATIVE); Urine Specific Gravity <=1.005 SP.GR. (1.005-1.010); Urine Urobilinogen Normal (NORMAL)
--- NOTE | 2020-12-28 20:03 | ERNOTE ---
Chest Pain/Cardiac HPI Date of Service: 12/28/20 Chief Complaint: Chest Pain Time Seen by Provider: 12/28/20 19:49 Source: patient Exam Limitations: no limitations Immunizations: IMMUNIZATION HX Immunizations Up to Date Yes History of Influenza Vaccine No Hx Pneumococcal Vaccination No Allergies/Adverse Reactions: Allergies Sulfa (Sulfonamide Antibiotics) Allergy (Severe, Verified 12/28/20 19:52) Anaphylaxis Home Medications: HOME MEDICATIONS Acetaminophen [Tylenol] 1,000 mg PO Q6H PRN 09/18/15 [Last Taken Unknown] Cyanocobalamin (Vitamin B-12) [Vitamin B-12] 2,000 mcg PO DAILY 09/18/15 [Last Taken 06/23/18] Calcium Carbonate/Vitamin D3 [Caltrate 600 + D Soft Chew Tab] 1 ea PO DAILY 04/15/17 [Last Taken 06/24/18 10:00] flecainide 100 mg tablet 300 mg PO .prn tab 09/23/18 [Last Taken Unknown] lisinopril 10 mg tablet 10 mg PO DAILY #90 tab 04/07/20 [Last Taken Unknown] betamethasone, augmented 0.05 % topical ointment 1 applic TP 3XW #50 g 05/26/20 [Last Taken Unknown] rivaroxaban 20 mg tablet 20 mg PO QPM tab 10/16/20 [Last Taken Unknown] Narrative: 70-year-old female presents with history of chest palpitations over the past few hours. She has a history of proximal A. fib began in 2017. She notes multiple episodes since then but has not had one since she believes 2017. Patient has been treated with Xarelto chronically without significant complication she is still acutely taking that medication. She denies any loss of consciousness, no lightheadedness, no other significant chest pain, no significant blurry vision, no other significant impairments at this time. Patient denies any other significant radiating modifying factors. She does report she has a history of numbness on her left side due to spinal stenosis diffusely she notes this is not present currently and no worse than baseline over the past few days. Patient otherwise denies any significant shortness of breath this time. She did note when she was mowing her yard earlier today she had mild shortness of breath. She took her blood pressure and noted it was slightly elevated when she was given the chest palpitations and presented to the ED. Patient took diltiazem and flecainide prior to arrival to the ED today. Her identity access management architect had prescribed these medicines to be taken if she had an episode of atrial fibrillation acutely onset. Patient noted no significant change in her symptoms so she presented to the ED. Review of Systems - Review of Systems Constitutional: Absent: fever, chills EYE: Absent: blurred vision, double vision ENT: Present: no symptoms reported Respiratory: Absent: shortness of breath, cough Cardiology: Absent: chest pain, syncope Gastrointestinal/Abdominal: Absent: nausea, vomiting, abdominal pain Genitourinary: Present: no symptoms reported Musculoskeletal: Absent: back pain, joint pain Skin: Absent: rash, lesions Neurological: Absent: headache, dizziness/light-headedness, weakness, numbness, tingling Endocrine: Present: no symptoms reported Hematologic/Lymphatic: Present: no symptoms reported Psych: Present: no symptoms reported All Other Systems: All systems neg except as marked Medical History (Last Reviewed 12/28/20 @ 20:01 by OSORIO Witt) Sigmoid diverticulosis (Chronic) Onset Date: 04/22/17 Paroxysmal atrial fibrillation (Chronic) Onset Date: ~05/2017 On Xarelto. Spinal stenosis (Chronic) Onset Date: Unknown Osteopenia (Chronic) Onset Date: 01/04/14 Hypertension (Chronic) Onset Date: ~2008 Bulging lumbar disc (Chronic) Onset Date: Unknown Lichen sclerosus Onset Date: 06/23/12 COVID-19 Onset Date: ~07/2020 Goiter Onset Date: Unknown Surgical History: Surgical History (Last Reviewed 12/28/20 @ 20:02 by OSORIO Witt) History of appendectomy Onset Date: Unknown History of colonoscopy Onset Date: 04/22/17 Dr. Josesito Hamm, [facility]. Sigmoid diverticulosis. Recheck 10 years. History of left inguinal hernia repair Onset Date: Unknown History of ovarian cystectomy Onset Date: Unknown Right. History of surgical removal of ganglion cyst Onset Date: ~1973 Left wrist. History of toe surgery Onset Date: 09/21/15 Family History: Family History (Last Reviewed 12/28/20 @ 20:02 by OSORIO Witt) Brother Heart disease 3 brothers, 1 with atrial fibrillation and heart disease A-fib Father Myocardial infarction Aneurysm Sister Hypertension Parkinsons disease Mother Heart disease A-fib Hypertension Liver cancer Bone cancer Arthritis Social History: (Last Reviewed 12/28/20 @ 20:02 by OSORIO Witt) Social History: adopted: No snf: No Marital status: / lives independently: Yes household members: none number of children: 2 number of grandchildren: 10 current occupational status: employed 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 Absent: raccoon eyes Eye Exam: Normal inspection: bilateral, PERRL: bilateral, EOMI: bilateral Ears, Nose, Throat: Present: normal ENT inspection, normal pharynx Neck: Present: normal inspection, nontender, full range of motion Respiratory: Present: no respiratory distress, normal breath sounds, no accessory muscle use, lungs clear Cardiovascular/Chest: Present: irregularly irregular Gastrointestinal/Abdominal: Present: normal bowel sounds, nontender, nondistended, soft Back Exam: Present: normal inspection, normal range of motion, no CVA tenderness, no vertebral tenderness Extremity Exam: Present: normal inspection, non-tender, normal range of motion, no edema Neurological Exam: Present: alert, oriented, normal mood/affect, no motor/sensory deficits, 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 She has a history of A. fib no recent episodes. She has had regular cardiac follow-up was discharged from her identity access management architect and August 2020. Patient has been on Xarelto chronical ly and continues take that medication reduce risk of blood clots. Upon presentation blood pressure was stable mildly elevated heart rate was between 130 and 150 EKG showed A. fib. Troponin was negative. No other significant lab findings at this time. Patient had taken a dose of diltiazem and flecainide at home without significant relief of symptoms she presented to the ED. Patient was given additional dose of Cardizem in the ED which significantly improved her overall rate to the 80s after monitoring and a repeat EKG she appears to still be in atrial fibrillation without significant P waves on EKG however there appears to be a bigeminy type pattern. She has no significant electrolyte abnormalities at this time. Discussed this case in detail with physician on staff. Spoke with Dr. Connolly from the medicine team who agreed to proceed with continued observation this patient overnight for cardiac monitoring due to the continued dysrhythmia. Discussed with patient admission for monitoring discussed the risk of complications and further transition to a more life- threatening rhythm. Patient expressed understanding she will be admitted at this time for further monitoring and continued management of her acute dysrhythmia. Discussed with the patient that we do not have a identity access management architect on site and that if any significant changes occurred she would be transferred for further care. She expressed understanding wishes to stay at our facility at this time for further acute monitoring. Patient will be admitted, COVID-19 test will be obtained prior to admission. Continued cardiac monitoring continuously. - Results and Orders Patient's Lab Results:: I have reviewed the patient's lab results. Results and Orders: Laboratory Last Values WBC 6.3 K/mm3 (4.0-10.5) 12/28/20 19:45 RBC 4.44 M/mm3 (4.2-5.4) 12/28/20 19:45 Hgb 13.2 gm/dL (12.5-16.0) 12/28/20 19:45 Hct 42.2 % (37.0-47.0) 12/28/20 19:45 MCV 95.0 fl (78-100) 12/28/20 19:45 MCH 29.7 pg (27-31) 12/28/20 19:45 MCHC 31.3 g/dl (32-36) L 12/28/20 19:45 RDW 13.1 % (11.5-14.0) 12/28/20 19:45 Plt Count 216 K/mm3 (150-450) 12/28/20 19:45 MPV 9.8 fl (8-12.5) 12/28/20 19:45 Immature Gran % (Auto) 0.20 % (0.001-0.429) 12/28/20 19:45 Immature Gran # (Auto) 0.01 K/mm3 (0.000-0.0310) 12/28/20 19:45 Neutrophils % 52.9 % (42-75.0) 12/28/20 19:45 Lymphocytes % 34.1 % (20-51) 12/28/20 19:45 Monocytes % 8.5 % (0.0-9) 12/28/20 19:45 Eosinophils % 3.5 % (0.0-3.0) H 12/28/20 19:45 Basophils % 0.8 % (0.0-1.0) 12/28/20 19:45 Nucleated RBC % 0.0 k/mm3 (0-1) 12/28/20 19:45 Neutrophils # 3.3 K/mm3 (1.3-6.0) 12/28/20 19:45 Lymphocytes # 2.14 k/mm3 (1.5-3.5) 12/28/20 19:45 Monocytes # 0.5 k/mm3 (0.0-1.0) 12/28/20 19:45 Eosinophils # 0.2 k/mm3 (0.0-0.7) 12/28/20 19:45 Absolute Basophils 0.1 k/mm3 (0.0-0.1) 12/28/20 19:45 PT 14.1 Seconds (9.1-10.7) H 12/28/20 19:45 INR (Anticoag Therapy) 1.38 INR (0.92-1.08) H 12/28/20 19:45 PTT ([place]) 37.2 Seconds (24-32) H 12/28/20 19:45 Sodium 145 mmol/L (132-142) H 12/28/20 19:45 Plasma Sodium 145 mmol/L (130-142) H 12/28/20 19:45 Potassium 3.9 mmol/L (3.4-4.6) 12/28/20 19:45 Chloride 108 mmol/L (97-106) H 12/28/20 19:45 Carbon Dioxide 28.3 mmol/L (24-32.6) 12/28/20 19:45 Anion Gap 12.6 mmol/L (6.8-13.8) 12/28/20 19:45 BUN 25 mg/dL (3-23) H 12/28/20 19:45 Creatinine 0.91 mg/dL (0.4-1.4) 12/28/20 19:45 Est GFR (Non-Af Amer) 65 mL/min (60-130) 12/28/20 19:45 BUN/Creatinine Ratio 27.5 (9.0-21.6) H 12/28/20 19:45 Random Glucose 93 mg/dL (70-110) 12/28/20 19:45 Calcium 9.8 mg/dL (7.9-10.9) 12/28/20 19:45 Calcium Adj for Albumin 9.6 mg/dL (8.4-10.2) 12/28/20 19:45 Total Bilirubin 0.3 mg/dL (0.0-1.1) 12/28/20 19:45 AST 26 U/L (0-48) 12/28/20 19:45 ALT 38 U/L (19-67) 12/28/20 19:45 Alkaline Phosphatase 120 U/L (50-170) 12/28/20 19:45 Troponin I 0.021 ng/mL (0.00-0.10) 12/28/20 19:45 Total Protein 7.5 gm/dL (6.2-8.2) 12/28/20 19:45 Albumin 3.9 gm/dl (3.4-5.0) 12/28/20 19:45 Urine Color Pale yellow 12/28/20 19:21 Urine Appearance Clear (CLEAR) 12/28/20 19:21 Urine pH 6.0 pH (5.0-7.0) 12/28/20 19: Ur Specific [place] <=1.005 SP.GR. (1.005-1.010) 12/28/20 19:21 Urine Protein Negative mg/dL (NEGATIVE) 12/28/20 19: Urine Glucose (UA) Negative mg/dL (NEGATIVE) 12/28/20: Urine Ketones Negative mg/dL (NEGATIVE) 12/28/20 19: Urine Blood 5 /ul (NEGATIVE) H 12/28/20 19: Urine Nitrate Negative (NEGATIVE) 12/28/20 19: Urine Bilirubin Negative mg/dl (NEGATIVE) 12/28/20 19: Urine Urobilinogen Normal EU/dl (NORMAL) 12/28/20 19: Ur Leukocyte Esterase Negative /ul (NEGATIVE) 12/28/20 19:21 Urine RBC Trace /hpf (0-5) 12/28/20 19:21 Urine WBC Trace /hpf (0-5) H 12/28/20 19:21 Ur Epithelial Cells Trace /hpf (0-5) 12/28/20 19:21 Urine Bacteria Trace (NONE) 12/28/20 19:21 Urine Culture Comments No culture indicated 12/28/20 19:21 - Vital Signs Patient's Vital Signs:: I have reviewed the patient's vital signs. Vital Signs: Vital Signs 12/28/20 19:15 Temperature 35.7 C L Pulse Rate 133 H Respiratory Rate 23 H Blood Pressure 129/70 O2 Sat by Pulse Oximetry 98 - EKG EKG #1 EKG: atrial fibrillation EKG read: Reviewed by me EKG Comments: Rapid ventricular response, ST depression EKG #2 EKG: atrial fibrillation EKG read: Reviewed by me EKG Comments: Incomplete right bundle branch block, appears to be a bigeminy type pattern - X-Ray X-Ray #1 X-Ray: chest Interpretation: Reviewed by me X-ray Comments: Trachea midline, no acute fractures, no significant blunting of costal phrenic angles, no significant cardiomegaly, no significant increased cardiopulmonary effusions, no significant acute cardiopulmonary processes evident - Progress/Reassessment Chief Complaint: Chest Pain Progress:: Improved Plan - Plan Plan: Patient will be admitted, discussed case with Dr. Connolly, continue cardiac catheterization technician Departure Clinical Impression: Paroxysmal atrial fibrillation, New onset a-fib - Departure Disposition: Still a patient Condition: Stable Referrals: Billy Bejarano DO [Primary Care Provider] -
[2020-12-28 20:06] LABS: Prothrombin Time (Patient) 14.1 Seconds (9.1-10.7)
[2020-12-28 20:09] LABS: INR 1.38 INR (0.92-1.08); Partial Thrombolplastin Time 37.2 Seconds (24-32)
[2020-12-28 20:19] LABS: Albumin * 3.9 gm/dl (3.4-5.0); Anion Gap 12.6 mmol/L (6.8-13.8); BUN/Creatinine Ratio 27.5 (9.0-21.6); Bilirubin, Total 0.3 mg/dL (0.0-1.1); Ca. Corrected For Albumin 9.6 mg/dL (8.4-10.2); Calcium * 9.8 mg/dL (7.9-10.9); Carbon Dioxide 28.3 mmol/L (24-32.6); Potassium 3.9 mmol/L (3.4-4.6); Total Protein 7.5 gm/dL (6.2-8.2); Troponin I 0.021 ng/mL (0.00-0.10)
[2020-12-28 20:24] LABS: Urine Appearance Clear (CLEAR); Urine Bacteria TRACE; Urine Blood 5 /ul (NEGATIVE); Urine Color Pale Yellow; Urine RBC TRACE /hpf (0-5); Urine WBC TRACE /hpf (0-5)
[2020-12-28] MEDS ORDERED: NORMAL SALINE 500 ML IV ONE ×2 (21:23→22:24)
--- NOTE | 2020-12-29 09:23 | HPDIS ---
Chief Complaint - Chief Complaint Date of Service: 12/29/20 Time of Service: 09:19 Chief Complaint: Chest Fluttering History of Present Illness: Yari is a 70 yo female with paroxsymal atrial fibrillation. She was mowing her grass yesterday, had dinner, and was then sitting down taking it easy when she noticed heart fluttering. She recognized it as her atrial fibrillation, although her last episode had been about 2 years ago. She had flecainide and diltiazem available to take as needed for events of atrial fibrillation but they were about 3 years old. She took 300mg of flecainide and 120mg of diltiazem, but noticed no change. She presented to the [facility] ER and was give IV diltiazem 15mg and converted to normal sinus rhythm. Her heart rate is currently in the 60s. She feels her usual self and feels ready to go home. There have been no recent changes to medication, diet, or activity. Medical History (Last Reviewed 12/28/20 @ 20:01 by OSORIO Witt) Sigmoid diverticulosis (Chronic) Onset Date: 04/22/17 Paroxysmal atrial fibrillation (Chronic) Onset Date: ~05/2017 On Xarelto. Spinal stenosis (Chronic) Onset Date: Unknown Osteopenia (Chronic) Onset Date: 01/04/14 Hypertension (Chronic) Onset Date: ~2008 Bulging lumbar disc (Chronic) Onset Date: Unknown Lichen sclerosus Onset Date: 06/23/12 COVID-19 Onset Date: ~07/2020 Goiter Onset Date: Unknown Surgical History: Surgical History (Last Reviewed 12/28/20 @ 20:02 by OSORIO Witt) History of appendectomy Onset Date: Unknown History of colonoscopy Onset Date: 04/22/17 Dr. Josesito Hamm, [facility]. Sigmoid diverticulosis. Recheck 10 years. History of left inguinal hernia repair Onset Date: Unknown History of ovarian cystectomy Onset Date: Unknown Right. History of surgical removal of ganglion cyst Onset Date: ~1973 Left wrist. History of toe surgery Onset Date: 09/21/15 Family History: Family History (Last Reviewed 12/28/20 @ 20:02 by OSORIO Witt) Brother Heart disease 3 brothers, 1 with atrial fibrillation and heart disease A-fib Father Myocardial infarction Aneurysm Sister Hypertension Parkinsons disease Mother Heart disease A-fib Hypertension Liver cancer Bone cancer Arthritis Social History: (Last Reviewed 12/28/20 @ 20:02 by OSORIO Witt) Social History: adopted: No jail: No Marital status: / lives independently: Yes household members: none number of children: 2 number of grandchildren: 10 current occupational status: employed 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 Absent: Chest Pain, Edema Abdominal: Absent: Nausea, Vomiting Genitourinary: Absent: Burning, Frequency Musculoskeletal: Present: No Symptoms Reported Neurological: Present: No Symptoms Reported Skin: Present: No Symptoms Reported Immunizations: IMMUNIZATION HX Immunizations Up to Date Yes History of Influenza Vaccine No Hx Pneumococcal Vaccination No Allergies/Adverse Reactions: Allergies Allergy/AdvReac Type Severity Reaction Status Date / Time Sulfa (Sulfonamide Allergy Severe Anaphylaxis Verified 12/28/20 19:52 Antibiotics) Home Medications: HOME MEDICATIONS Acetaminophen [Tylenol] 1,000 mg PO Q6H PRN 09/18/15 [Last Taken Unknown] Cyanocobalamin (Vitamin B-12) [Vitamin B-12] 2,000 mcg PO DAILY 09/18/15 [Last Taken 06/23/18] Calcium Carbonate/Vitamin D3 [Caltrate 600 + D Soft Chew Tab] 1 ea PO DAILY 04/15/17 [Last Taken 06/24/18 10:00] lisinopril 10 mg tablet 10 mg PO DAILY #90 tab 04/07/20 [Last Taken Unknown] betamethasone, augmented 0.05 % topical ointment 1 applic TP 3XW #50 g 05/26/20 [Last Taken Unknown] rivaroxaban 20 mg tablet 20 mg PO QPM tab 10/16/20 [Last Taken Unknown] Diltiazem HCl [Cardizem] 120 mg PO DAILY PRN #30 tab 12/29/20 [Last Taken Unknown] Flecainide Acetate 300 mg PO DAILY PRN #30 tab 12/29/20 [Last Taken Unknown] Exam - Exam Vital Signs: Vital Signs - Last Taken Temp 36.7 C 12/29/20 06:32 Pulse 62 12/29/20 06:32 Resp 16 12/29/20 06:32 BP 113/54 12/29/20 06:32 Pulse Ox 94 12/29/20 06:32 Constitutional: Present: Alert, Oriented x3, Cooperative ENT Exam: Present: hearing grossly normal Eye Exam: bilateral eye: normal inspection Respiratory: Present: lungs clear, normal breath sounds Cardiovascular/Chest: Present: regular rate, rhythm, no murmur Peripheral Pulses: radial (R): 2+, radial (L): 2+ Abdomen: Present: Normal bowel sounds, soft, nontender, nondistended Skin Exam: Present: normal color, warm/dry, no cyanosis Neurologic: Present: alert, normal mood/affect, oriented x 3 Appearance: Present: appropriate appearance, appropriate insight Eye contact: Present: cooperative, good eye contact, normal speech Thoughts: Present: normal thought pattern, no apparent hallucination Diagnostic Studies: Abnormal Lab Results 12/28/20 12/28/20 12/28/20 Range/Units 19: 19:45 19:45 MCHC 31.3 L (32-36) g/dl Eosinophils % 3.5 H (0.0-3.0) % PT 14.1 H (9.1-10.7) Seconds INR (Anticoag Therapy) 1.38 H (0.92-1.08) INR PTT ([place]) 37.2 H (24-32) Seconds Sodium (132-142) mmol/L Plasma Sodium (130-142) mmol/L Chloride (97-106) mmol/L BUN (3-23) mg/dL BUN/Creatinine Ratio (9.0-21.6) Urine Blood 5 H (NEGATIVE) /ul Urine WBC Trace H (0-5) /hpf 12/28/20 Range/Units 19:45 MCHC (32-36) g/dl Eosinophils % (0.0-3.0) % PT (9.1-10.7) Seconds INR (Anticoag Therapy) (0.92-1.08) INR PTT ([place]) (24-32) Seconds Sodium 145 H (132-142) mmol/L Plasma Sodium 145 H (130-142) mmol/L Chloride 108 H (97-106) mmol/L BUN 25 H (3-23) mg/dL BUN/Creatinine Ratio 27.5 H (9.0-21.6) Urine Blood (NEGATIVE) /ul Urine WBC (0-5) /hpf Laboratory Results WBC 6.3 K/mm3 (4.0-10.5) 12/28/20 19:45 RBC 4.44 M/mm3 (4.2-5.4) 12/28/20 19:45 Hgb 13.2 gm/dL (12.5-16.0) 12/28/20 19:45 Hct 42.2 % (37.0-47.0) 12/28/20 19:45 MCV 95.0 fl (78-100) 12/28/20 19:45 MCH 29.7 pg (27-31) 12/28/20 19:45 MCHC 31.3 g/dl (32-36) L 12/28/20 19:45 RDW 13.1 % (11.5-14.0) 12/28/20 19:45 Plt Count 216 K/mm3 (150-450) 12/28/20 19:45 MPV 9.8 fl (8-12.5) 12/28/20 19:45 Immature Gran % (Auto) 0.20 % (0.001-0.429) 12/28/20 19:45 Immature Gran # (Auto) 0.01 K/mm3 (0.000-0.0310) 12/28/20 19:45 Neutrophils % 52.9 % (42-75.0) 12/28/20 19:45 Lymphocytes % 34.1 % (20-51) 12/28/20 19:45 Monocytes % 8.5 % (0.0-9) 12/28/20 19:45 Eosinophils % 3.5 % (0.0-3.0) H 12/28/20 19:45 Basophils % 0.8 % (0.0-1.0) 12/28/20 19:45 Nucleated RBC % 0.0 k/mm3 (0-1) 12/28/20 19:45 Neutrophils # 3.3 K/mm3 (1.3-6.0) 12/28/20 19:45 Lymphocytes # 2.14 k/mm3 (1.5-3.5) 12/28/20 19:45 Monocytes # 0.5 k/mm3 (0.0-1.0) 12/28/20 19:45 Eosinophils # 0.2 k/mm3 (0.0-0.7) 12/28/20 19:45 Absolute Basophils 0.1 k/mm3 (0.0-0.1) 12/28/20 19:45 PT 14.1 Seconds (9.1-10.7) H 12/28/20 19:45 INR (Anticoag Therapy) 1.38 INR (0.92-1.08) H 12/28/20 19:45 PTT ([place]) 37.2 Seconds (24-32) H 12/28/20 19:45 Sodium 145 mmol/L (132-142) H 12/28/20 19:45 Plasma Sodium 145 mmol/L (130-142) H 12/28/20 19:45 Potassium 3.9 mmol/L (3.4-4.6) 12/28/20 19:45 Chloride 108 mmol/L (97-106) H 12/28/20 19:45 Carbon Dioxide 28.3 mmol/L (24-32.6) 12/28/20 19:45 Anion Gap 12.6 mmol/L (6.8-13.8) 12/28/20 19:45 BUN 25 mg/dL (3-23) H 12/28/20 19:45 Creatinine 0.91 mg/dL (0.4-1.4) 12/28/20 19:45 Est GFR (Non-Af Amer) 65 mL/min (60-130) 12/28/20 19:45 BUN/Creatinine Ratio 27.5 (9.0-21.6) H 12/28/20 19:45 Random Glucose 93 mg/dL (70-110) 12/28/20 19:45 Calcium 9.8 mg/dL (7.9-10.9) 12/28/20 19:45 Calcium Adj for Albumin 9.6 mg/dL (8.4-10.2) 12/28/20 19:45 Total Bilirubin 0.3 mg/dL (0.0-1.1) 12/28/20 19:45 AST 26 U/L (0-48) 12/28/20 19:45 ALT 38 U/L (19-67) 12/28/20 19:45 Alkaline Phosphatase 120 U/L (50-170) 12/28/20 19:45 Troponin I 0.021 ng/mL (0.00-0.10) 12/28/20 19:45 Total Protein 7.5 gm/dL (6.2-8.2) 12/28/20:45 Albumin 3.9 gm/dl (3.4-5.0) 12/28/20 19:45 Urine Color Pale yellow 12/28/20 19: Urine Appearance Clear (CLEAR) 12/28/20 19: Urine pH 6.0 pH (5.0-7.0) 12/28/20: Ur Specific [place] <=1.005 SP.GR. (1.005-1.010) 12/28/20: Urine Protein Negative mg/dL (NEGATIVE) 12/28/20: Urine Glucose (UA) Negative mg/dL (NEGATIVE) 12/28/20: Urine Ketones Negative mg/dL (NEGATIVE) 12/28/20 19: Urine Blood 5 /ul (NEGATIVE) H 12/28/20 19: Urine Nitrate Negative (NEGATIVE) 12/28/20: Urine Bilirubin Negative mg/dl (NEGATIVE) 12/28/20 19: Urine Urobilinogen Normal EU/dl (NORMAL) 12/28/20 19: Ur Leukocyte Esterase Negative /ul (NEGATIVE) 12/28/20: Urine RBC Trace /hpf (0-5) 12/28/20: Urine WBC Trace /hpf (0-5) H 12/28/20 19:21 Ur Epithelial Cells Trace /hpf (0-5) 12/28/20 19:21 Urine Bacteria Trace (NONE) 12/28/20 19: Urine Culture Comments No culture indicated 12/28/20 19: SARS-CoV-2 (PCR) Not detected (NotDetected) 12/28/20 20:56 Assessment/Plan - Narrative Narrative: Yari was admitted to observation after receiving IV diltiazem in the ER. She converted to normal sinus rhythm and is doing well. She was monitored for 6 hours after IV medication and will be discharged to home. Will give her a new rx for flecainide and diltiazem as the medication she had at home was about 3 years old and likely not effective. - Assessment/Plan (1) Atrial fibrillation with RVR Problem: Resolved (2) Paroxysmal atrial fibrillation Problem: Chronic (1) Atrial fibrillation with RVR Problem: Acute (2) Paroxysmal atrial fibrillation Problem: Chronic Date of Discharge:: 12/29/20 Hospital Course: Yari was admitted for atrial fibrillation with RVR that was converted to normal sinus rhythm with IV diltiazem given in the ER. She was admitted to observation and placed on telemetry. She feels fine and has remained in normal sinus rhythm. She has known paroxysmal atrial fibrillation. Her last episode was about 2 years ago. She had flecainide and diltiazem to use prn for episodes but her medication was about 3 years old. She took it for this episode but did not notice anything. It is likely that the medication is too old and has lost some of it's potency. I will send a new rx at discharge. She will follow up in 1 week. Procedures Performed: none Results and Findings: Lab Pending Results 12/28/20 19:21: Urine Color Pale yellow, Urine Appearance Clear, Urine pH 6.0, Ur Specific [place] <=1.005, Urine Protein Negative, Urine Glucose (UA) Negative, Urine Ketones Negative, Urine Blood 5 H, Urine Nitrate Negative, Urine Bilirubin Negative, Urine Urobilinogen Normal, Ur Leukocyte Esterase Negative, Urine RBC Trace, Urine WBC Trace H, Ur Epithelial Cells Trace, Urine Bacteria Trace, Urine Culture Comments No culture indicated 12/28/20 19:45: WBC 6.3, RBC 4.44, Hgb 13.2, Hct 42.2, MCV 95.0, MCH 29.7, MCHC 31.3 L, RDW 13.1, Plt Count 216, MPV 9.8, Immature Gran % (Auto) 0.20, Immature Gran # (Auto) 0.01, Neutrophils % 52.9, Lymphocytes % 34.1, Monocytes % 8.5, Eosinophils % 3.5 H, Basophils % 0.8, Nucleated RBC % 0.0, Neutrophils # 3.3, Lymphocytes # 2.14, Monocytes # 0.5, Eosinophils # 0.2, Absolute Basophils 0.1 12/28/20 19:45: PT 14.1 H, INR (Anticoag Therapy) 1.38 H, PTT ([place]) 37.2 H 12/28/20 19:45: Sodium 145 H, Plasma Sodium 145 H, Potassium 3.9, Chloride 108 H, Carbon Dioxide 28.3, Anion Gap 12.6, BUN 25 H, Creatinine 0.91, Est GFR (Non- Af Amer) 65, BUN/Creatinine Ratio 27.5 H, Random Glucose 93, Calcium 9.8, Calcium Adj for Albumin 9.6, Total Bilirubin 0.3, AST 26, ALT 38, Alkaline Phosphatase 120, Troponin I 0.021, Total Protein 7.5, Albumin 3.9 12/28/20 20:56: SARS-CoV-2 (PCR) Not detected Discharge Location: Home Disposition: Home self-care Condition: Good Discharge Activity: Activity as tolerated Discharge Diet: Low salt Referrals: Billy Bejarano DO [Primary Care Provider] - One Week Problem Oriented Discharge Instructions to Patient/Family: Atrial Fibrillation, [id number] Prescriptions (Any new or edited meds): Diltiazem HCl [Cardizem] 120 mg PO DAILY PRN #30 tab PRN Reason: Atrial fibrillation Transmission Status: Pending to [place] Flecainide Acetate 300 mg PO DAILY PRN #30 tab PRN Reason: atrial fibrillation Transmission Status: Pending to [place] Complete Home Medications List: Complete Home Medication List: Acetaminophen [Tylenol] 1,000 mg PO Q6H PRN 09/18/15 Cyanocobalamin (Vitamin B-12) [Vitamin B-12] 2,000 mcg PO DAILY 09/18/15 Calcium Carbonate/Vitamin D3 [Caltrate 600 + D Soft Chew Tab] 1 ea PO DAILY 04/15/17 lisinopril 10 mg tablet 10 mg PO DAILY #90 tab 04/07/20 betamethasone, augmented 0.05 % topical ointment 1 applic TP 3XW #50 g 05/26/20 rivaroxaban 20 mg tablet 20 mg PO QPM tab 10/16/20 Diltiazem HCl [Cardizem] 120 mg PO DAILY PRN #30 tab 12/29/20 Flecainide Acetate 300 mg PO DAILY PRN #30 tab 12/29/20
[2020-12-29 11:46] VITALS: BP 118/55
== END 2020-12-29 11:40 | disposition home or self-care (01) ==
LOC: MS 19:09 → ER 19:09 → MS 22:40
PROVIDERS: ADMIT Family Medicine; ATTEND Family Medicine